=== PATIENT | female | born 1975 | race African-American/Black ===

== ENCOUNTER 2018-10-29 04:24 | Emergency (ER) | payer MEDICAID, OTHER ==
[~2018-10-29] VITALS: Ht 170.2 cm; Wt 87.6 kg
[2018-10-29 12:08] VITALS: BP 112/74
[2018-10-29] MEDS ORDERED: SODIUM CHLORIDE 0.9% 1,000 ML IV ONE (13:20)
[2018-10-29] MEDS ORDERED: ACETAMINOPHEN 325MG TABLET PO STA (13:20)
[2018-10-29 14:15] LABS: BASOPHILS % 0.3 % (0.0-2.0); EOSINOPHILS % 0.3 % (0.0-5.0); HEMOGLOBIN. 12.5 g/dL (12.0-16.0); LYMPHOCYTES % 18.3 % (20.0-50.0); MEAN PLATELET VOLUME 7.9 fl (7.4-10.4); MONOCYTES % 10.5 % (2.0-8.0); NEUTROPHILS % 70.6 % (40.0-76.0); PLATELET 308 x1000/uL (130-400); RED BLOOD CELL COUNT 4.32 mill/uL (4.2-5.4)
[2018-10-29 14:19] LABS: CHLORIDE 103 mEq/L (98-107)
[2018-10-29 16:47] LABS: CLARITY URINE CLEAR (CLEAR); COLOR URINE YELLOW (YELLOW); KETONES URINE NEGATIVE (NEGATIVE); LEUKOCYTE ESTERASE URINE NEGATIVE (NEGATIVE); NITRITE URINE NEGATIVE (NEGATIVE); OCCULT BLOOD URINE NEGATIVE (NEGATIVE); PROTEIN URINE NEGATIVE (NEGATIVE); SPECIFIC GRAVITY URINE 1.021 (1.005-1.030)
== END 2018-10-29 18:45 | disposition home or self-care (01) ==
LOC: ER 04:24
DX: R50.9 Fever, unspecified (principal); R10.30 Lower abdominal pain, unspecified
CPT/HCPCS: 36415; 71045; 80053; 81003; 85025; 99284; J7030

== ENCOUNTER 2024-01-05 09:08 | Emergency (ER) | payer MEDICAID ==
[~2024-01-05] VITALS: Ht 167.6 cm; Wt 87.0 kg
[2024-01-05 09:21] VITALS: O2SAT 100
[2024-01-05 09:59] LABS: CHLORIDE 107 mEq/L (98-107); POTASSIUM 4.3 mEq/L (3.5-5.1); SODIUM 140 mEq/L (136-145)
[2024-01-05 10:00] LABS: CARBON DIOXIDE 27 mEq/L (21-32)
[2024-01-05 10:05] LABS: CREATININE 0.4 mg/dL (0.6-1.0); GLUCOSE 96 mg/dL (70-105); UREA NITROGEN BLOOD 6 mg/dL (9-23)
[2024-01-05 10:24] LABS: BASOPHILS % 0.5 % (0.0-2.0); EOSINOPHILS % 0.8 % (0.0-5.0); HEMOGLOBIN. 12.1 g/dL (12.0-16.0); LYMPHOCYTES % 42.6 % (20.0-50.0); MEAN CORPUSCULAR HEMOGLOBIN 29.2 pg (28.0-32.0); MEAN CORPUSCULAR HGB CONC 32.6 g/dL (31.0-37.0); MEAN CORPUSCULAR VOLUME 89.5 fL (81.0-99.0); MEAN PLATELET VOLUME 8.6 fl (7.4-10.4); MONOCYTES % 10.5 % (2.0-8.0); NEUTROPHILS % 45.6 % (40.0-76.0); PLATELET 272 x1000/uL (130-400); RED BLOOD CELL COUNT 4.14 mill/uL (4.2-5.4); RED CELL DISTRIBUTION WIDTH 14.3 % (11.6-14.6); WHITE BLOOD COUNT 4.1 x1000/uL (4.5-11.0)
[2024-01-05 10:27] LABS: CLARITY URINE CLEAR (CLEAR); COLOR URINE YELLOW (YELLOW); GLUCOSE URINE NEGATIVE (NEGATIVE); KETONES URINE NEGATIVE (NEGATIVE); LEUKOCYTE ESTERASE URINE NEGATIVE (NEGATIVE); NITRITE URINE NEGATIVE (NEGATIVE); OCCULT BLOOD URINE NEGATIVE (NEGATIVE); PH URINE 6.5 (4.5-8.0); PROTEIN URINE NEGATIVE (NEGATIVE); SPECIFIC GRAVITY URINE 1.021 (1.005-1.030)
[2024-01-05 11:15] VITALS: BP 129/77; PULSE 68; RESP 17; TEMP 97.9
[2024-01-05] MEDS ORDERED: CYCL5TAB MT (11:30)
== END 2024-01-05 15:23 | disposition home or self-care (01) ==
LOC: ER 09:25
DX: M79.18 Myalgia, other site (principal); G25.2 Other specified forms of tremor; Z98.890 Other specified postprocedural states
CPT/HCPCS: 36415; 71045; 80048; 81003; 81025; 85025; 93005; 99285

== ENCOUNTER 2025-07-12 14:52 | Emergency (ER) | payer MEDICAID ==
[~2025-07-12] VITALS: Ht 170.2 cm; Wt 93.0 kg
[~2025-07-12 14:52] MED LIST: CYCL5TAB3 MT
[2025-07-12 14:58] VITALS: O2SAT 98
[2025-07-12] MEDS: LIDOCAINE 5% PATCH TOP SCH (16:46)
[2025-07-12] MEDS: KETOROLAC 30MG/ML VIAL IM ONE (16:46)
[2025-07-12] MEDS ORDERED: LIDO-53 TP (17:17)
[2025-07-12] MEDS ORDERED: IBUP-2030 MT (17:17)
[2025-07-12 18:16] VITALS: BP 110/71; PULSE 95; RESP 15; TEMP 36.7; O2SAT 98
== END 2025-07-12 18:18 | disposition home or self-care (01) ==
LOC: ER 14:52
DX: M25.562 Pain in left knee (principal); M25.552 Pain in left hip; Z98.890 Other specified postprocedural states; W18.30XA Fall on same level, unspecified, initial encounter; Y93.89 Activity, other specified; Y92.89 Other specified places as the place of occurrence of the external cause; Y99.8 Other external cause status
CPT/HCPCS: 81025; 73522; 73560; 96372; 99284; J1885; Z7610